=== PATIENT | male | born 1955 | race Caucasian/White ===

== ENCOUNTER → 2016-12-19 | Outpatient (CLI) | payer BC ==
[~2016-12-19] MED LIST: PRIL20CA9 PO
--- NOTE | 2016-12-19 15:22 | RADRPT ---
EXAM DATE/TIME: 12/19/2016 15:08 [place] COMPARISON: No previous studies available for comparison. INDICATIONS : Evaluate for pneumonia, pneumothorax, or communicable disease. Pre op for knee scope. MEDICAL HISTORY : None. SURGICAL HISTORY : None. ENCOUNTER: Initial ACUITY: 1 day PAIN SCORE: 0/10 LOCATION: Bilateral chest FINDINGS: PA and lateral views of the chest demonstrate the lungs to be symmetrically aerated without evidence of mass, infiltrate or effusion. The cardiomediastinal contours are unremarkable. Osseous structure s are intact. CONCLUSION: No acute disease. Inder Bess MD on December 19, 2016 at 15:20 Board Certified Radiologist. This report was verified electronically.
[2016-12-19 15:38] LABS: BLOOD, URINE NEG (NEG); COMMENT (UR) CULT NOT INDICATED; CULTURE IF INDICATED CULT NOT INDICATED; GLUCOSE,URINE NEG (NEG); KETONE, URINE NEG (NEG); MUCUS URINE FEW /lpf (OCC); NITRITE,URINE NEG (NEG); PH, URINE 5.5 (5.0-8.5); URINE COLOR YELLOW (YELLW/STRAW)
[2016-12-19 15:41] LABS: INTERNATIONAL NORMALIZED RATIO 1.1 RATIO; PROTHROMBIN TIME - PATIENT 12.1 SEC (9.8-11.6)
[2016-12-19 15:55] LABS: BICARBONATE 28.3 MEQ/L (21.0-32.0); POTASSIUM 4.1 MEQ/L (3.5-5.1)
--- NOTE | 2016-12-26 13:00 | EKG ---
Date Performed: 12/19/2016 Time Performed: 14:54:01 PTAGE: 61 years EKG: Sinus rhythm NORMAL ECG NO PREVIOUS TRACING DOCTOR: Camacho Danielle Interpretating Date/Time 12/26/2016 12:59:12
== END ==
LOC: CPRE 14:17
PROVIDERS: ATTEND Orthopaedic Surgery
DX: Z01.810 Encounter for preprocedural cardiovascular examination (principal); Z01.811 Encounter for preprocedural respiratory examination; Z01.812 Encounter for preprocedural laboratory examination; S83.242D Other tear of medial meniscus, current injury, left knee, subsequent encounter; X58.XXXD Exposure to other specified factors, subsequent encounter
CPT/HCPCS: 36415; 71020; 80048; 81001; 85610; 93005

== ENCOUNTER → 2016-12-23 | Day surgery (SDC) | payer BC ==
--- NOTE | 2016-12-20 12:26 | MH ---
cc: MAX PRUITT MD DATE OF ADMISSION 12/23/2016 ADMITTING DIAGNOSIS Medial meniscus tear of the left knee, chondromalacia left knee, chondromalacia patellae left knee, effusion left knee, pain left knee HISTORY The patient is a 61-year-old white male who has experienced pain of his left knee of greater than six months duration. He had been accustomed to jogging activity as part of an exercise program for over 20 years, but had discontinued this routine for an extended interval of time in the recent past because of soreness about the knee. As he attempted to resume his jogging activities, his pain recurred about the medial aspect of the left knee for which she took Aleve without appreciable benefit. He subsequently underwent orthopedic evaluation in November of this year at which time he reported that he had received previous cortisone injections to his knee without long-term benefit being noted, as well as having undergone arthroscopic surgery of his left knee within the previous 15 years as was completed in [place]. At the time of his initial office evaluation, his x-ray studies did demonstrate trace narrowing of the medial compartment consistent with an early degenerative process and a varus deformity of approximately 10 degrees magnitude. Findings and treatment options were reviewed with the patient at that time. Based upon the longevity of his symptoms, he expressed his desire to proceed with further evaluation for which he did undergo an MRI scan results of which identified a large horizontal tear involving the posterior horn and body of the medial meniscus extending to the undersurface. There was patellar chondromalacia, as well as, medial compartment chondromalacia associated with a moderate sized joint effusion. A 1.9 cm ganglion cyst posterior to the posterior cruciate ligament was also noted. The patient returned to the office in follow-up disposition and at that time, the findings of his scan were reviewed and treatment options discussed. The pros and cons of continuing with conservative management versus operative intervention that would involve arthroscopic surgery was outlined in detail. Emphasis was made regarding the fact that the decision to proceed with surgery would be left entirely to the patient's discretion. The patient readily admitted that his symptoms had progressed to a point in time where he is ready to proceed accordingly and in compliance with his wishes, he was scheduled for admission at this time in order that arthroscopic surgery be accomplished. PAST MEDICAL HISTORY Hospitalizations and surgeries: 1. In addition to the previous arthroscopic surgery of his left knee included two previous arthroscopic surgeries of his right knee. 2. Removal of a bone spur of the distal left tibia. 3. Bilateral inguinal herniorrhaphy. 4. Tonsillectomy 5. Colonoscopy 6. Arthroscopic rotator cuff repair of the right shoulder. The patient denies active medical illnesses. MEDICATIONS He takes no prescribed medications. ALLERGIES There are no indicated drug allergies. REVIEW OF SYSTEMS He wears glasses for reading purposes. No headache, seizure or syncope. No sinus congestion or epistaxis. Auditory acuity is slightly diminished, although he does not utilize hearing aids. No cough, shortness of breath or tuberculosis. He has had a history of pneumonia in the past. No angina or heart disease. His appetite is good. Bowel movements are regular. No hepatitis, gallbladder disease, ulcers or hemorrhoids. No urinary tract infection. No kidney stones. No prostate disease. A history of a right ankle fracture treated by cast immobilization. No psychiatric illness. The remaining review of systems is unremarkable and noncontributory. FAMILY HISTORY The patient has been for 16 years this being a second marriage. His is 53 years of age and described as being in good health. He has two daughters by a previous marriage indicated to be in good health. Family history is positive for diabetes. SOCIAL HISTORY The patient has been retired for several years having worked for [employer]. He completed a high school education. He denies active use of tobacco since 1985, but had been a one-pack per day user for at least 15 years prior to that time. Moderate ethanol consumption. PHYSICAL EXAMINATION Height 6 feet, weight 209 pounds. GENERAL: An alert, oriented and responsive 61-year-old white male who sits quietly upon examination table with no obvious distress. HEAD, EYES, EARS, NOSE, AND THROAT: Pupils are equally round and reactive to light. Extraocular movements full. Sclerae clear. External nares clear. External auditory canals clear. Dental intact. Mucous membranes pink and moist. Pharynx clear. NECK: Supple. Active range of motion with no appreciable pain. Carotid pulse bilaterally. Trachea midline. Thyroid without enlargement. LUNGS: Clear to auscultation and percussion. No CVA tenderness. No discomfort throughout the dorsal lumbar spine. HEART: Regular rhythm. No murmur or gallop. ABDOMEN: Soft, nontender. Bowel sounds present. RECTAL: Deferred. EXTREMITIES: Left knee, no significant swelling or effusion. There is limited mobility at the extreme of flexion without significant crepitation. No sensation of instability. Ashanti test and drawer sign negative. Pivot shift and Anthony sign positive for medial compartment pain. Straight-leg raising unremarkable at 80 degrees. Independent gait. NEUROLOGIC: Cranial nerves II-XII grossly intact. IMPRESSION Medial meniscus tear left knee, chondromalacia left knee, chondromalacia patellae left knee, effusion left knee, pain left knee PLAN Arthroscopic surgery and possible arthrotomy left knee. The nature of the planned surgical procedure, the potential complications and risks associated, the expectations of surgery and the consent form were thoroughly reviewed with the patient prior to admission to the hospital. Mr. Frye has indicated his full understanding regarding all of the above and given consent to proceed with treatment as outlined. MD HILARIO Kaplan/SON /12:01 PM /12:15 PM
[~2016-12-23] VITALS: Ht 182.9 cm; Wt 96.0 kg
[~2016-12-23] MED LIST changes: +ACETAMINOPHEN/HYDROcodone 325 MG/5 MG TAB PO PRN; +DO NOT ADM ANY ANTICOAGULANT DRUGS XX PRN; +FAMOTIDINE 20 MG/2 ML VIAL ONE; +INSULIN HUMAN REGULAR 1,000 UNITS/10 ML VIAL SQ PRN; +KETOROLAC TROMETHAMINE 60 MG/2 ML (IM) VIAL IM ONE; +LACTATED RINGER'S 1000 ML IV SCH; +LIDOCAINE HCL 2% 50 ML VIAL ONE; +LIDOCAINE HCL 2% PF SOLN 10 ML VIAL INFIL ONE; +METOPROLOL TARTRATE 25 MG TAB PO PRN; +MIDAZOLAM HCL 2 MG/2 ML VIAL ONE; +MORPHINE SULFATE 10 MG/ML INJ IM PRN; +ONDANSETRON HCL 4 MG/2 ML VIAL IV PUSH ONE; +POVIDONE IODINE 7.5% SCRUB 118 ML BOTTLE TOP SCH; +PROMETHAZINE INJ 25 MG/ML VIAL IM PRN; +PROPOFOL 200 MG/20 ML AMP IV ONE; +SODIUM CHLORID 0.9% 500 ML IV SCH; +TRIAMCINOLONE ACETONIDE 40 MG/ML VIAL I-ARTICULR ONE; +ceFAZolin 2 GM PREMIX 50 ML IV SCH; +fentaNYL CITRATE 250 MCG/5 ML AMP ONE
[2016-12-23 06:24] VITALS: BP 145/92; PULSE 58; RESP 18; TEMP 98; O2SAT 98
[2016-12-23 11:31] VITALS: BP 128/75; PULSE 65; RESP 18; TEMP 97.5; O2SAT 96
--- NOTE | 2016-12-24 22:22 | MP ---
cc: MAX CLEMENS DATE OF SURGERY 12/23/16 PREOPERATIVE DIAGNOSIS Medial meniscus tear of the left knee, chondromalacia left knee, chondromalacia patellae left knee, effusion left knee and pain of the left knee. POSTOPERATIVE DIAGNOSIS Medial meniscus tear of the left knee, chondromalacia left knee, chondromalacia patellae left knee, effusion left knee and pain of the left knee, synovial plica left knee. PROCEDURE 1. Partial medial meniscectomy left knee, 2. Shaving debridement medial compartment left knee 3. Resection synovial plica left knee. 4. Limited chondroplasty patellofemoral joint left knee SURGEON Zulema Clemens MD ANESTHESIA General by LMA PROCEDURE IN DETAIL Following induction of satisfactory general anesthesia by LMA insertion as completed per the Department of Anesthesia, examination of the left knee did reveal a satisfactory range of motion with no appreciable ligamentous instability. There was an obvious varus orientation of the knee but no collateral ligamentous laxity. The extremity proper was positioned into the cleaner assistant knee atkins, prepped with Betadine solution and draped into a sterile field in the routine manner. Prior to initiation of the actual procedure. the standard time-out protocol was completed. All parameters were appropriately addressed and confirmed by operating room personnel. Arthroscopic instrumentation was introduced through stab wound utilizing cannula with sharp and blunt trocar. The inflow irrigation by way of a medial suprapatellar portal, the arthroscope through a lateral parapatellar portal and a probe through a medial parapatellar portal. Examination of the suprapatellar pouch revealed a prominent synovial plica encompassing the entire suprapatellar region. Mild degenerative change of the patellofemoral joint consistent with chondromalacia was appreciated. Within the medial compartment, a degenerative tear involving the posterior horn of the medial meniscus with associated chondromalacia changes throughout the medial compartment being identified. The anterior cruciate ligament was visualized and noted to be intact with minimal proliferative synovium extending into the intercondylar region. Examination of the lateral compartment was essentially unremarkable. There was no significant degenerative irregularity and the lateral meniscus did appear to be intact. Attention was redirected to the medial compartment. Utilizing both a biting suction forceps as well as a 4.0 aggressive resector, a partial medial meniscectomy was accomplished as well as a generalized debridement throughout the medial compartment involving both femoral condyle and tibial plateau. Instrumentation was thereafter entered into the suprapatellar region where the previously identified synovial plica was resected in a subtotal orientation as well as a localized chondroplasty of the patellofemoral joint. Upon completion of same, the joint space was thoroughly lavaged and suctioned dry. An intra-articular Kenalog lidocaine injection was completed. Portal sites were reapproximated with Steri-Strips over which Xeroform gauze and a bulky dry sterile dressing applied. Anesthesia was discontinued and the patient thus transferred to a hospital stretcher and returned to the recovery room in satisfactory condition having tolerated his operative procedure well. Estimated blood loss was less than 5 mL. MD HILARIO Kaplan/ /9:55 AM /10:11 PM
== END | disposition home or self-care (01) ==
LOC: HSDC 05:53 → EDUNIT# 13:00
PROVIDERS: ATTEND Orthopaedic Surgery
DX: S83.242A Other tear of medial meniscus, current injury, left knee, initial encounter (principal); M94.262 Chondromalacia, left knee; M25.462 Effusion, left knee
CPT/HCPCS: 01400; 29881; J0690; J1885; J2250; J2405; J3010; J3301; J7120